=== PATIENT | female | born 1945 | race African-American/Black ===

== ENCOUNTER 2016-11-27 23:06 | Inpatient (IN) | payer MEDICARE, MEDICAID ==
[~2016-11-27] VITALS: Ht 175.3 cm; Wt 87.8 kg
[~2016-11-27 23:06] MED LIST: ACET-3161 PO; CHOL100046 PO; CLOP75TA33 PO; FURO40TA5 PO; GABA-533 PO; LISI40TA4 PO; LOSA50TA20 PO; METO50TA5 PO; OMEP20TA80 PO; POTA10TA15 PO; [UNRECOGNIZED DRUG - OTHER]
[2016-11-28] MEDS ORDERED: LORAZEPAM 2MG/ML CPJ IV ONE (00:30)
[2016-11-28 00:55] LABS: BASOPHILS % 1.3 % (0.0-2.0); EOSINOPHILS % 4.3 % (0.0-5.0); HEMATOCRIT. 26.5 % (36.0-48.0); HEMOGLOBIN. 8.8 g/dL (12.0-16.0); LYMPHOCYTES % 34.3 % (20.0-50.0); MEAN CORPUSCULAR HEMOGLOBIN 29.5 pg (28.0-32.0); MEAN CORPUSCULAR VOLUME 88.7 fL (81.0-99.0); MEAN PLATELET VOLUME 10.2 fl (7.4-10.4); MONOCYTES % 9.8 % (2.0-8.0); NEUTROPHILS % 50.3 % (40.0-76.0); PLATELET 250 x1000/uL (130-400); RED BLOOD CELL COUNT 2.98 mill/uL (4.2-5.4); RED CELL DISTRIBUTION WIDTH 16.1 % (11.6-14.6)
[2016-11-28 01:01] LABS: INR 1.1
[2016-11-28 01:09] LABS: CARBON DIOXIDE 27 mEq/L (21-32); CHLORIDE 103 mEq/L (98-107); TROPONIN I 0.31 ng/mL (0.00-0.04)
[2016-11-28 07:34] VITALS: BP 168/81
[2016-11-28 08:00] VITALS: BP 168/81
[2016-11-28] MEDS ORDERED: ONDANSETRON HCL 4MG/2ML VIAL IV PRN (09:45)
[2016-11-28] MEDS ORDERED: MAGNESIUM/ALUMINUM HYDROXIDE/SIMETHICONE 30ML UDC PO PRN (09:45)
[2016-11-28] MEDS ORDERED: GUAIFENESIN 200MG/10ML SUGAR FREE UDC PO PRN (09:45)
[2016-11-28] MEDS ORDERED: CLONIDINE 0.1MG TABLET PO PRN (09:45)
[2016-11-28] MEDS ORDERED: LORAZEPAM 2MG/ML CPJ IV PRN (09:45)
[2016-11-28] MEDS ORDERED: ACETAMINOPHEN WITH CODEINE 300/30MG TABLET PO PRN (09:45)
[2016-11-28] MEDS ORDERED: GABAPENTIN 400MG CAPSULE PO SCH (10:00)
[2016-11-28] MEDS ORDERED: LISINOPRIL 40MG TABLET PO SCH (10:00)
[2016-11-28] MEDS ORDERED: DEXTROSE 50% WATER 50ML SYRINGE IV PRN (10:15)
[2016-11-28] MEDS: CHOLECALCIFEROL (D3) 1000 UNIT TABLET PO SCH (10:49)
[2016-11-28] MEDS: CLOPIDOGREL 75MG TABLET PO SCH (10:49)
[2016-11-28] MEDS: ALLOPURINOL 100 MG TABLET PO SCH (10:49)
[2016-11-28] MEDS: LOSARTAN POTASSIUM 50 MG TABLET PO SCH (10:49)
[2016-11-28] MEDS: METOPROLOL TARTRATE 50MG TABLET PO SCH ×2 (10:50→20:20)
[2016-11-28 11:53] VITALS: BP 134/65
[2016-11-28] MEDS: BLOOD SUGAR DIAGNOSTIC STRIP TEST SCH ×3 (12:20→20:17)
[2016-11-28] MEDS: INSULIN LISPRO 100 UNITS/ML SUBCUT SCH ×3 (12:50→20:24)
[2016-11-28] MEDS: SODIUM CHLORIDE 0.9% INJ 3ML FLUSH IVF SCH ×2 (13:25→21:06)
[2016-11-28] MEDS: GABAPENTIN 300MG CAPSULE PO SCH ×2 (13:26→18:52)
[2016-11-28] MEDS: ACETAMINOPHEN 325MG TABLET PO PRN (13:27)
[2016-11-28 16:00] VITALS: BP 153/72
[2016-11-28 20:00] VITALS: BP 142/72
[2016-11-28] MEDS: OMEPRAZOLE 20MG CAPSULE EXTENDED RELEASE PO SCH (20:20)
[2016-11-29] VITALS: BP 121/64
[2016-11-29 04:00] VITALS: BP 133/67
[2016-11-29] MEDS: SODIUM CHLORIDE 0.9% INJ 3ML FLUSH IVF SCH ×3 (05:17→21:09)
[2016-11-29] MEDS: OMEPRAZOLE 20MG CAPSULE EXTENDED RELEASE PO SCH ×2 (06:20→21:09)
[2016-11-29] MEDS: BLOOD SUGAR DIAGNOSTIC STRIP TEST SCH ×4 (06:21→21:05)
[2016-11-29] MEDS: INSULIN LISPRO 100 UNITS/ML SUBCUT SCH ×4 (07:20→21:00)
[2016-11-29 08:00] VITALS: BP 135/83
[2016-11-29] MEDS ORDERED: METOPROLOL TARTRATE 50MG TABLET PO SCH (09:00)
[2016-11-29] MEDS: ALLOPURINOL 100 MG TABLET PO SCH (09:00)
[2016-11-29] MEDS: CHOLECALCIFEROL (D3) 1000 UNIT TABLET PO SCH (09:30)
[2016-11-29] MEDS: CLOPIDOGREL 75MG TABLET PO SCH (09:31)
[2016-11-29] MEDS: METOPROLOL TARTRATE 50MG TABLET PO SCH ×2 (09:31→21:09)
[2016-11-29] MEDS: GABAPENTIN 300MG CAPSULE PO SCH ×3 (09:32→18:02)
[2016-11-29] MEDS: LOSARTAN POTASSIUM 50 MG TABLET PO SCH (09:32)
[2016-11-29] MEDS: HYDROCODONE/ACETAMINOPHEN 5/325MG TABLET PO PRN (09:38)
[2016-11-29 12:00] VITALS: BP 137/62
[2016-11-29] MEDS ORDERED: SODIUM CHLORIDE 0.9% 500 ML IV ONE (13:15)
[2016-11-29] MEDS: ACETAMINOPHEN 325MG TABLET PO PRN (13:25)
[2016-11-29 16:00] VITALS: BP 169/81
[2016-11-29 20:00] VITALS: BP 169/85
[2016-11-29 21:26] LABS: CREATININE URINE (RAW) 60.6 mg/dl
[2016-11-30] VITALS: BP 148/84
[2016-11-30 04:00] VITALS: BP 145/72
[2016-11-30] MEDS: SODIUM CHLORIDE 0.9% INJ 3ML FLUSH IVF SCH ×2 (05:59→12:04)
[2016-11-30] MEDS: BLOOD SUGAR DIAGNOSTIC STRIP TEST SCH ×2 (06:02→12:04)
[2016-11-30] MEDS: OMEPRAZOLE 20MG CAPSULE EXTENDED RELEASE PO SCH (06:04)
[2016-11-30] MEDS: INSULIN LISPRO 100 UNITS/ML SUBCUT SCH ×2 (07:50→12:04)
[2016-11-30 08:00] VITALS: BP 181/78
[2016-11-30] MEDS: ALLOPURINOL 100 MG TABLET PO SCH (08:10)
[2016-11-30] MEDS: GABAPENTIN 300MG CAPSULE PO SCH ×2 (08:28→12:07)
[2016-11-30] MEDS: METOPROLOL TARTRATE 50MG TABLET PO SCH (08:28)
[2016-11-30] MEDS: CHOLECALCIFEROL (D3) 1000 UNIT TABLET PO SCH (08:28)
[2016-11-30] MEDS: LOSARTAN POTASSIUM 50 MG TABLET PO SCH (08:28)
[2016-11-30] MEDS: CLOPIDOGREL 75MG TABLET PO SCH (08:28)
[2016-11-30 12:00] VITALS: BP 157/72
[2016-11-30 12:02] LABS: BASOPHILS % 0.6 % (0.0-2.0); EOSINOPHILS % 2.9 % (0.0-5.0); HEMATOCRIT. 25.4 % (36.0-48.0); HEMOGLOBIN. 8.4 g/dL (12.0-16.0); LYMPHOCYTES % 18.2 % (20.0-50.0); MEAN CORPUSCULAR HEMOGLOBIN 29.3 pg (28.0-32.0); MEAN CORPUSCULAR VOLUME 89.2 fL (81.0-99.0); MEAN PLATELET VOLUME 10.1 fl (7.4-10.4); MONOCYTES % 8.6 % (2.0-8.0); NEUTROPHILS % 69.7 % (40.0-76.0); PLATELET 253 x1000/uL (130-400); RED BLOOD CELL COUNT 2.85 mill/uL (4.2-5.4); RED CELL DISTRIBUTION WIDTH 15.4 % (11.6-14.6)
[2016-11-30 12:26] LABS: PHOSPHORUS 3.3 mg/dL (2.5-4.9); T4 FREE 1.08 ng/dL (0.76-1.46)
[2016-11-30 12:48] LABS: VITAMIN B12 SERUM 514 pg/mL (211-911)
[2016-11-30] MEDS: HYDROCODONE/ACETAMINOPHEN 5/325MG TABLET PO PRN (12:51)
[2016-11-30] MEDS ORDERED: EPOETIN ALFA 40000 UNIT/ML SUBCUT ONE (13:00)
[2016-11-30] MEDS ORDERED: CYANOCOBALAMIN 1000MCG/ML VIAL IM NR (13:00)
[2016-11-30] MEDS ORDERED: EPOETIN ALFA 10000UNITS/ML VIAL SUBCUT NR (15:00)
[2016-11-30 15:51] VITALS: BP 157/68
[2016-11-30 16:00] VITALS: BP 157/68
[2016-12-01 13:09] LABS: A/G RATIO 0.7 (0.7-1.7); ALBUMIN 2.5 g/dL (2.9-4.4); ALPHA-1-GLOBULIN 0.3 g/dL (0.0-0.4); ALPHA-2-GLOBULIN 0.8 g/dL (0.4-1.0); BETA GLOBULIN 0.9 g/dL (0.7-1.3); GAMMA GLOBULINS 1.4 g/dL (0.4-1.8); GLOBULIN TOTAL 3.4 g/dL (2.2-3.9); M-SPIKE 0.4 g/dL (Not Observed); TOTAL PROTEIN SERUM 5.9 g/dL (6.0-8.5)
[2016-12-02 17:08] LABS: ANA IFA Negative (.)
== END 2016-11-30 17:55 | disposition home or self-care (01) | DRG 100 ==
LOC: ER 23:06 → 6WST 11-28 04:21 → EDBEDREQ 11-28 04:46 → ENRESERV 11-28 05:33
PROVIDERS: ADMIT Internal Medicine; ATTEND Internal Medicine
DX: G40.89 Other seizures (principal); G93.40 Encephalopathy, unspecified; I50.33 Acute on chronic diastolic (congestive) heart failure; N18.4 Chronic kidney disease, stage 4 (severe); I13.0 Hypertensive heart and chronic kidney disease with heart failure and stage 1 through stage 4 chronic kidney disease, or unspecified chronic kidney disease; E11.22 Type 2 diabetes mellitus with diabetic chronic kidney disease; I25.10 Atherosclerotic heart disease of native coronary artery without angina pectoris; M54.9 Dorsalgia, unspecified; G89.29 Other chronic pain; M19.90 Unspecified osteoarthritis, unspecified site; M47.816 Spondylosis without myelopathy or radiculopathy, lumbar region; R56.9 Unspecified convulsions; I25.2 Old myocardial infarction; Z86.718 Personal history of other venous thrombosis and embolism; Z79.84 Long term (current) use of oral hypoglycemic drugs; D64.9 Anemia, unspecified; R80.9 Proteinuria, unspecified; I27.2 Other secondary pulmonary hypertension; F17.210 Nicotine dependence, cigarettes, uncomplicated; G25.3 Myoclonus; Z90.710 Acquired absence of both cervix and uterus; Z83.3 Family history of diabetes mellitus; Z91.14 Patient's other noncompliance with medication regimen; Z79.899 Other long term (current) drug therapy
CPT/HCPCS: 36415; 70450; 71010; 80048; 80053; 82575; 82607; 82962; 83036; 83605; 83735; 84100; 84155; 84156; 84165; 84439; 84443; 84484; 85025; 85610; 86256; 86335; 93005; 96374; 99291; J0885; J2060; J3420; J7040

== ENCOUNTER 2017-01-23 11:42 | Inpatient (IN) | payer MEDICARE, MEDICAID ==
[~2017-01-23] VITALS: Ht 167.6 cm; Wt 85.7 kg
[~2017-01-23 11:42] MED LIST changes: +OMEP20TA2 PO; -OMEP20TA80 PO
[2017-01-23] MEDS ORDERED: ASPIRIN 81MG TABLET PO STA (12:22)
[2017-01-23] MEDS ORDERED: FUROSEMIDE 40MG/4ML VIAL IV STA (12:22)
[2017-01-23 14:47] LABS: EOSINOPHILS % 0.2 % (0.0-5.0); HEMATOCRIT. 31.8 % (36.0-48.0); HEMOGLOBIN. 10.3 g/dL (12.0-16.0); LYMPHOCYTES % 12.6 % (20.0-50.0); MEAN CORPUSCULAR HEMOGLOBIN 28.7 pg (28.0-32.0); MONOCYTES % 4.2 % (2.0-8.0); PLATELET 239 x1000/uL (130-400); RED BLOOD CELL COUNT 3.57 mill/uL (4.2-5.4); RED CELL DISTRIBUTION WIDTH 16.5 % (11.6-14.6)
[2017-01-23 14:54] LABS: PROTHROMBIN TIME 10.7 sec (9.4-11.6)
[2017-01-23 14:58] LABS: CHLORIDE 112 mEq/L (98-107)
[2017-01-23 15:13] LABS: CARBON DIOXIDE 21 mEq/L (21-32); CREATINE KINASE 133 IU/L (26-192)
[2017-01-23] MEDS ORDERED: FUROSEMIDE 80MG TABLET PO ONE (15:15)
[2017-01-23] MEDS ORDERED: METOLAZONE 2.5MG TABLET PO ONE (15:15)
[2017-01-23 15:46] LABS: TROPONIN I 0.57 ng/mL (0.00-0.04)
[2017-01-23 15:50] LABS: CLARITY URINE CLEAR (CLEAR); COLOR URINE YELLOW (YELLOW); GLUCOSE URINE NEGATIVE (NEGATIVE); KETONES URINE NEGATIVE (NEGATIVE); LEUKOCYTE ESTERASE URINE NEGATIVE (NEGATIVE); NITRITE URINE NEGATIVE (NEGATIVE); OCCULT BLOOD URINE TRACE (NEGATIVE); PROTEIN URINE 3+ (NEGATIVE); SPECIFIC GRAVITY URINE 1.015 (1.005-1.030); UROBILINOGEN URINE 0.2 E.U./dL (0.2-1.0)
[2017-01-23] MEDS ORDERED: DOCUSATE SODIUM 100MG CAPSULE PO PRN (17:45)
[2017-01-23] MEDS ORDERED: GUAIFENESIN 200MG/10ML SUGAR FREE UDC PO PRN (17:45)
[2017-01-23] MEDS ORDERED: ONDANSETRON HCL 4MG/2ML VIAL IV PRN (17:45)
[2017-01-23 18:10] VITALS: BP 198/106
[2017-01-23] MEDS ORDERED: DEXTROSE 50% WATER 50ML SYRINGE IV PRN (18:45)
[2017-01-23] MEDS: CLONIDINE 0.1MG TABLET PO PRN (19:01)
[2017-01-23 20:00] VITALS: BP 180/87
[2017-01-23] MEDS: INSULIN LISPRO 100 UNITS/ML SUBCUT SCH (20:39)
[2017-01-23] MEDS: BLOOD SUGAR DIAGNOSTIC STRIP TEST SCH (20:39)
[2017-01-23] MEDS: GABAPENTIN 400MG CAPSULE PO SCH (20:46)
[2017-01-23] MEDS ORDERED: LISINOPRIL 40MG TABLET PO SCH (21:00)
[2017-01-23] MEDS ORDERED: MVI, ADULT NO.1 10 ML, FOLIC ACID 1 MG, THIAMINE HCL 100 MG in SODIUM CHLORIDE 0.9% 1,0... IV NR ×4 (21:00)
[2017-01-23 22:19] VITALS: BP 158/80
[2017-01-24] VITALS (9 sets, daily range): BP systolic 117–180; BP diastolic 65–100
[2017-01-24] MEDS: CLONIDINE 0.1MG TABLET PO PRN ×3 (04:29→18:55)
[2017-01-24] MEDS: BLOOD SUGAR DIAGNOSTIC STRIP TEST SCH ×4 (06:13→20:16)
[2017-01-24] MEDS: INSULIN LISPRO 100 UNITS/ML SUBCUT SCH ×4 (06:13→20:17)
[2017-01-24] MEDS: PANTOPRAZOLE 40MG DR TABLET PO SCH (06:16)
[2017-01-24] MEDS: CLOPIDOGREL 75MG TABLET PO SCH (08:40)
[2017-01-24] MEDS: FUROSEMIDE 20MG/2ML VIAL IVP SCH ×2 (08:40→16:26)
[2017-01-24] MEDS: CHOLECALCIFEROL (D3) 1000 UNIT TABLET PO SCH (08:40)
[2017-01-24] MEDS ORDERED: SODIUM BICARBONATE 4% (2.4MEQ) 5ML VIAL IV ONE (08:53)
[2017-01-24] MEDS ORDERED: LIDOCAINE HCL 1% 20ML VIAL (Pyxis) INJ ONE (08:53)
[2017-01-24] MEDS ORDERED: POTASSIUM CHLORIDE 20MEQ TABLET SR PO SCH (09:00)
[2017-01-24] MEDS ORDERED: METOPROLOL TARTRATE 50MG TABLET PO SCH (09:00)
[2017-01-24] MEDS ORDERED: LISINOPRIL 40MG TABLET PO SCH (09:00)
[2017-01-24 17:54] LABS: BASOPHILS % 0.9 % (0.0-2.0); EOSINOPHILS % 3.2 % (0.0-5.0); HEMATOCRIT. 26.2 % (36.0-48.0); HEMOGLOBIN. 8.6 g/dL (12.0-16.0); LYMPHOCYTES % 21.2 % (20.0-50.0); MEAN CORPUSCULAR HEMOGLOBIN 29.2 pg (28.0-32.0); MEAN CORPUSCULAR VOLUME 88.9 fL (81.0-99.0); NEUTROPHILS % 66.7 % (40.0-76.0); PLATELET 197 x1000/uL (130-400); RED BLOOD CELL COUNT 2.95 mill/uL (4.2-5.4); RED CELL DISTRIBUTION WIDTH 16.4 % (11.6-14.6)
[2017-01-24 18:16] LABS: CARBON DIOXIDE 23 mEq/L (21-32); CHLORIDE 110 mEq/L (98-107)
[2017-01-24 18:45] LABS: TROPONIN I 0.55 ng/mL (0.00-0.04)
[2017-01-24 19:11] LABS: HEPATITIS B SURFACE ANTIGEN NEGATIVE
[2017-01-24] MEDS ORDERED: LISINOPRIL 40MG TABLET PO NR (20:45)
[2017-01-24] MEDS: GABAPENTIN 400MG CAPSULE PO SCH (20:57)
[2017-01-25] VITALS (8 sets, daily range): BP systolic 142–199; BP diastolic 78–96
[2017-01-25] MEDS: CLONIDINE 0.1MG TABLET PO PRN ×4 (00:21→20:38)
[2017-01-25] MEDS: BLOOD SUGAR DIAGNOSTIC STRIP TEST SCH ×4 (06:15→20:57)
[2017-01-25] MEDS: INSULIN LISPRO 100 UNITS/ML SUBCUT SCH ×4 (06:15→20:58)
[2017-01-25] MEDS: PANTOPRAZOLE 40MG DR TABLET PO SCH (06:17)
[2017-01-25] MEDS: CLONIDINE HCL 0.3MG/24HR PATCH TD NR (06:18)
[2017-01-25 07:27] LABS: BASOPHILS % 0.8 % (0.0-2.0); EOSINOPHILS % 3.5 % (0.0-5.0); HEMOGLOBIN. 8.9 g/dL (12.0-16.0); LYMPHOCYTES % 19.1 % (20.0-50.0); MEAN CORPUSCULAR HEMOGLOBIN 29.3 pg (28.0-32.0); MEAN CORPUSCULAR VOLUME 88.5 fL (81.0-99.0); MEAN PLATELET VOLUME 10.6 fl (7.4-10.4); MONOCYTES % 8.1 % (2.0-8.0); NEUTROPHILS % 68.5 % (40.0-76.0); PLATELET 179 x1000/uL (130-400); RED BLOOD CELL COUNT 3.05 mill/uL (4.2-5.4); RED CELL DISTRIBUTION WIDTH 16.1 % (11.6-14.6)
[2017-01-25] MEDS: CLOPIDOGREL 75MG TABLET PO SCH (08:10)
[2017-01-25] MEDS: FUROSEMIDE 20MG/2ML VIAL IVP SCH ×2 (08:11→16:45)
[2017-01-25] MEDS: CHOLECALCIFEROL (D3) 1000 UNIT TABLET PO SCH (08:11)
[2017-01-25] MEDS: LISINOPRIL 40MG TABLET PO SCH ×2 (08:11→20:39)
[2017-01-25] MEDS: METOPROLOL TARTRATE 25MG TABLET PO SCH ×2 (08:11→20:40)
[2017-01-25 10:26] LABS: RAPID PLASMA REAGIN QUANT REACTIVE 1:4
[2017-01-25 10:36] LABS: RHEUMATOID FACTOR SCREEN NEGATIVE (NEGATIVE)
[2017-01-25] MEDS: GABAPENTIN 400MG CAPSULE PO SCH (20:40)
[2017-01-25] MEDS: NIFEDIPINE XL 60MG TAB PO SCH (22:08)
[2017-01-26] VITALS: BP 191/85
[2017-01-26 04:00] VITALS: BP 138/69
[2017-01-26] MEDS: NIFEDIPINE XL 60MG TAB PO SCH ×3 (05:23→21:54)
[2017-01-26] MEDS: PANTOPRAZOLE 40MG DR TABLET PO SCH (06:21)
[2017-01-26] MEDS: CLONIDINE HCL 0.3MG/24HR PATCH TD NR (06:23)
[2017-01-26] MEDS: BLOOD SUGAR DIAGNOSTIC STRIP TEST SCH ×4 (06:32→20:26)
[2017-01-26] MEDS: INSULIN LISPRO 100 UNITS/ML SUBCUT SCH ×4 (06:32→20:36)
[2017-01-26 06:40] LABS: EOSINOPHILS % 3.5 % (0.0-5.0); HEMATOCRIT. 28.8 % (36.0-48.0); HEMOGLOBIN. 9.6 g/dL (12.0-16.0); LYMPHOCYTES % 20.2 % (20.0-50.0); MEAN CORPUSCULAR VOLUME 87.3 fL (81.0-99.0); MEAN PLATELET VOLUME 10.6 fl (7.4-10.4); MONOCYTES % 8.4 % (2.0-8.0); NEUTROPHILS % 66.9 % (40.0-76.0); PLATELET 185 x1000/uL (130-400)
[2017-01-26 08:00] VITALS: BP 143/58
[2017-01-26 09:07] LABS: A/G RATIO 0.8 (0.7-1.7); ALBUMIN 2.3 g/dL (2.9-4.4); ALPHA-1-GLOBULIN 0.2 g/dL (0.0-0.4); ALPHA-2-GLOBULIN 0.7 g/dL (0.4-1.0); BETA GLOBULIN 0.8 g/dL (0.7-1.3); GAMMA GLOBULINS 1.3 g/dL (0.4-1.8); M-SPIKE 0.4 g/dL (Not Observed); TOTAL PROTEIN SERUM 5.3 g/dL (6.0-8.5)
[2017-01-26] MEDS: CLOPIDOGREL 75MG TABLET PO SCH (09:21)
[2017-01-26] MEDS: LISINOPRIL 40MG TABLET PO SCH ×2 (09:21→20:22)
[2017-01-26] MEDS: METOPROLOL TARTRATE 25MG TABLET PO SCH ×2 (09:21→20:22)
[2017-01-26] MEDS: FUROSEMIDE 20MG/2ML VIAL IVP SCH ×2 (09:21→18:03)
[2017-01-26] MEDS: CHOLECALCIFEROL (D3) 1000 UNIT TABLET PO SCH (09:22)
[2017-01-26 11:38] VITALS: BP 123/60
[2017-01-26] MEDS: FERROUS SULFATE 325MG TABLET PO SCH ×2 (13:02→18:03)
[2017-01-26] MEDS ORDERED: CLONIDINE HCL 0.3MG/24HR PATCH TD NR (13:03)
[2017-01-26 15:09] LABS: ANTI-NUCLEAR ANTIBODIES DIRECT Positive (Negative)
[2017-01-26 15:42] VITALS: BP 139/74
[2017-01-26 20:00] VITALS: BP 130/70
[2017-01-26] MEDS: GABAPENTIN 400MG CAPSULE PO SCH (20:22)
[2017-01-27] VITALS: BP 149/76
[2017-01-27 04:00] VITALS: BP 153/73
[2017-01-27] MEDS: ACETAMINOPHEN 325MG TABLET PO PRN ×2 (04:05→23:31)
[2017-01-27] MEDS: NIFEDIPINE XL 60MG TAB PO SCH ×3 (05:20→21:36)
[2017-01-27] MEDS: BLOOD SUGAR DIAGNOSTIC STRIP TEST SCH ×4 (06:45→20:47)
[2017-01-27] MEDS: INSULIN LISPRO 100 UNITS/ML SUBCUT SCH ×4 (06:46→20:50)
[2017-01-27] MEDS: PANTOPRAZOLE 40MG DR TABLET PO SCH (07:12)
[2017-01-27 07:53] VITALS: BP 135/70
[2017-01-27] MEDS: FERROUS SULFATE 325MG TABLET PO SCH ×3 (09:04→18:14)
[2017-01-27] MEDS: FUROSEMIDE 20MG/2ML VIAL IVP SCH ×2 (09:04→18:13)
[2017-01-27] MEDS: CHOLECALCIFEROL (D3) 1000 UNIT TABLET PO SCH (09:05)
[2017-01-27] MEDS: LISINOPRIL 40MG TABLET PO SCH ×2 (09:05→20:45)
[2017-01-27] MEDS: METOPROLOL TARTRATE 25MG TABLET PO SCH ×2 (09:05→20:45)
[2017-01-27 09:06] LABS: COMPLEMENT C3 77 mg/dL (82-167); GLOMERULAR BASEMENT MEMB AB 3 units (0-20)
[2017-01-27 12:12] VITALS: BP 126/64
[2017-01-27 13:12] LABS: ANTI-MYELOPEROXIDASE AB < 9.0 U/mL (0.0-9.0); ANTI-PROTEINASE 3 ABS < 3.5 U/mL (0.0-3.5)
[2017-01-27 16:00] VITALS: BP 157/68
[2017-01-27] MEDS ORDERED: GABAPENTIN 100MG CAPSULE PO NR (17:00)
[2017-01-27 20:22] VITALS: BP 138/63
[2017-01-27] MEDS: GABAPENTIN 400MG CAPSULE PO SCH (20:45)
[2017-01-28] VITALS: BP_SYST 69
[2017-01-28 04:00] VITALS: BP 132/65
[2017-01-28] MEDS: NIFEDIPINE XL 60MG TAB PO SCH ×3 (06:08→23:17)
[2017-01-28] MEDS: PANTOPRAZOLE 40MG DR TABLET PO SCH (06:09)
[2017-01-28] MEDS: BLOOD SUGAR DIAGNOSTIC STRIP TEST SCH ×4 (06:09→21:33)
[2017-01-28] MEDS: INSULIN LISPRO 100 UNITS/ML SUBCUT SCH ×4 (06:59→21:00)
[2017-01-28 08:00] VITALS: BP 157/73
[2017-01-28] MEDS: FERROUS SULFATE 325MG TABLET PO SCH ×3 (08:46→17:01)
[2017-01-28] MEDS: FUROSEMIDE 20MG/2ML VIAL IVP SCH ×2 (08:47→17:01)
[2017-01-28] MEDS: LISINOPRIL 40MG TABLET PO SCH ×2 (08:47→21:33)
[2017-01-28] MEDS: METOPROLOL TARTRATE 25MG TABLET PO SCH ×2 (08:47→21:32)
[2017-01-28] MEDS: GABAPENTIN 100MG CAPSULE PO SCH ×2 (08:47→21:32)
[2017-01-28] MEDS: CHOLECALCIFEROL (D3) 1000 UNIT TABLET PO SCH (08:47)
[2017-01-28] MEDS: ACETAMINOPHEN 325MG TABLET PO PRN ×3 (08:48→23:16)
[2017-01-28 12:00] VITALS: BP 139/70
[2017-01-28 15:12] LABS: ATYPICAL P-ANCA <1:20 titer (Neg:<1:20); CYTOPLASMIC C-ANCA <1:20 titer (Neg:<1:20); PERINUCLEAR P-ANCA <1:20 titer (Neg:<1:20)
[2017-01-28 15:58] VITALS: BP 144/68
[2017-01-28 20:00] VITALS: BP 124/66
[2017-01-29] VITALS: BP 126/80
[2017-01-29 04:00] VITALS: BP 101/65
[2017-01-29] MEDS: NIFEDIPINE XL 60MG TAB PO SCH ×2 (05:41→15:47)
[2017-01-29] MEDS: INSULIN LISPRO 100 UNITS/ML SUBCUT SCH ×2 (06:53→12:34)
[2017-01-29] MEDS: BLOOD SUGAR DIAGNOSTIC STRIP TEST SCH ×2 (06:53→12:34)
[2017-01-29] MEDS: PANTOPRAZOLE 40MG DR TABLET PO SCH (06:54)
[2017-01-29 07:46] LABS: PHOSPHORUS 2.9 mg/dL (2.5-4.9)
[2017-01-29 08:00] VITALS: BP 123/68
[2017-01-29] MEDS: FERROUS SULFATE 325MG TABLET PO SCH ×2 (09:02→12:38)
[2017-01-29] MEDS: CHOLECALCIFEROL (D3) 1000 UNIT TABLET PO SCH (09:02)
[2017-01-29] MEDS: LISINOPRIL 40MG TABLET PO SCH (09:02)
[2017-01-29] MEDS: FUROSEMIDE 20MG/2ML VIAL IVP SCH (09:02)
[2017-01-29] MEDS: METOPROLOL TARTRATE 25MG TABLET PO SCH (09:03)
[2017-01-29] MEDS: GABAPENTIN 100MG CAPSULE PO SCH (09:04)
[2017-01-29 11:44] VITALS: BP 127/67
[2017-01-29 13:50] VITALS: BP_SYST 127; BP_SYST 143; BP_DIAS 67; BP_DIAS 73
[2017-01-29 15:58] VITALS: BP 143/73
[2017-02-01] MEDS ORDERED: CLONIDINE HCL 0.3MG/24HR PATCH TD NR (09:00)
== END 2017-01-29 17:15 | disposition home or self-care (01) | DRG 291 ==
LOC: ER 13:17 → EDBEDREQ 15:51 → EDBEDREQTM 15:51 → 8WST 15:51 → ENRESERV 16:01
PROVIDERS: ADMIT Internal Medicine; ATTEND Internal Medicine
PROC: 05H333Z Insertion of Infusion Device into Right Innominate Vein, Percutaneous Approach (ICD-10-PCS; principal; 2017-01-24)
PROC: B54MZZA Ultrasonography of Right Upper Extremity Veins, Guidance (ICD-10-PCS; 2017-01-24)
DX: I13.0 Hypertensive heart and chronic kidney disease with heart failure and stage 1 through stage 4 chronic kidney disease, or unspecified chronic kidney disease (principal); I50.43 Acute on chronic combined systolic (congestive) and diastolic (congestive) heart failure; N18.4 Chronic kidney disease, stage 4 (severe); E85.9 Amyloidosis, unspecified; C90.00 Multiple myeloma not having achieved remission; E11.21 Type 2 diabetes mellitus with diabetic nephropathy; N04.9 Nephrotic syndrome with unspecified morphologic changes; E44.1 Mild protein-calorie malnutrition; E11.42 Type 2 diabetes mellitus with diabetic polyneuropathy; I27.2 Other secondary pulmonary hypertension; E87.5 Hyperkalemia; I73.9 Peripheral vascular disease, unspecified; E55.9 Vitamin D deficiency, unspecified; D64.9 Anemia, unspecified; I25.10 Atherosclerotic heart disease of native coronary artery without angina pectoris; E11.22 Type 2 diabetes mellitus with diabetic chronic kidney disease; E11.621 Type 2 diabetes mellitus with foot ulcer; R56.9 Unspecified convulsions; E78.5 Hyperlipidemia, unspecified; F17.210 Nicotine dependence, cigarettes, uncomplicated; G25.81 Restless legs syndrome; G89.29 Other chronic pain; I42.9 Cardiomyopathy, unspecified; M51.36 Other intervertebral disc degeneration, lumbar region; I25.2 Old myocardial infarction; Z79.899 Other long term (current) drug therapy; Z83.3 Family history of diabetes mellitus; Z90.710 Acquired absence of both cervix and uterus; Z98.61 Coronary angioplasty status
CPT/HCPCS: 36415; 36569; 71010; 76937; 80048; 80053; 81001; 82550; 82595; 82962; 83520; 83605; 83690; 83735; 83880; 84100; 84155; 84156; 84165; 84443; 84484; 85025; 85610; 85730; 86038; 86160; 86256; 86335; 86430; 86592; 86593; 86780; 86803; 87040; 87186; 87340; 93005; 93970; 97110; 97116; 97162; 97535; 99285; A6261; C1725; C1893; J1815; J1940; J3411; J3490; J7030; A4315